=== PATIENT | male | born 1955 | race Caucasian/White ===

== ENCOUNTER 2021-06-02 08:42 | Emergency (ER) | payer MEDICARE ==
[~2021-06-02] VITALS: Ht 170.2 cm; Wt 102.3 kg
[2021-06-02] MEDS ORDERED: MECL-134 PO (08:46)
[2021-06-02] MEDS ORDERED: CHOL500043 PO (08:46)
[2021-06-02] MEDS ORDERED: LISI-892 PO (08:46)
[2021-06-02] MEDS ORDERED: OMEP20 PO (08:46)
[2021-06-02] MEDS ORDERED: METF-911 PO (08:46)
[2021-06-02] MEDS ORDERED: SEMA3TAB4 PO (08:46)
[2021-06-02] MEDS ORDERED: ATOR20TA86 PO (08:46)
[2021-06-02 10:06] VITALS: BP 122/75
== END 2021-06-02 11:46 | disposition home or self-care (01) ==
LOC: EMS 08:49
DX: S61.012A Laceration without foreign body of left thumb without damage to nail, initial encounter (principal); I10 Essential (primary) hypertension; E11.9 Type 2 diabetes mellitus without complications; Z79.84 Long term (current) use of oral hypoglycemic drugs; Z79.899 Other long term (current) drug therapy; X58.XXXA Exposure to other specified factors, initial encounter; Y93.89 Activity, other specified; Y92.89 Other specified places as the place of occurrence of the external cause; Y99.8 Other external cause status
CPT/HCPCS: 82962; 99283

== ENCOUNTER 2021-07-05 08:53 | Emergency (ER) | payer MEDICARE ==
[~2021-07-05] VITALS: Ht 172.7 cm; Wt 102.3 kg
[~2021-07-05 08:53] MED LIST: ATOR20TA86 PO; CHOL500043 PO; LISI-892 PO; MECL-134 PO; METF-911 PO; OMEP20 PO; SEMA3TAB4 PO
[2021-07-05] MEDS ORDERED: KETOROLAC TROMETHAMINE 30 MG/ML VIAL IM ONE (10:00)
[2021-07-05] MEDS ORDERED: LIDOCAINE 5% TRANSDERMAL PATCH TD ONE (10:00)
[2021-07-05] MEDS ORDERED: ACETAMINOPHEN 500 MG TABLET PO ONE (10:00)
[2021-07-05 11:07] VITALS: BP 120/72
[2021-07-05] MEDS ORDERED: IBUP-2070 PO (11:15)
[2021-07-05] MEDS ORDERED: LIDO700A15 TP (11:15)
== END 2021-07-05 11:33 | disposition home or self-care (01) ==
LOC: EMS 09:01
DX: M54.50 Low back pain, unspecified (principal); E11.9 Type 2 diabetes mellitus without complications; E78.00 Pure hypercholesterolemia, unspecified; G43.909 Migraine, unspecified, not intractable, without status migrainosus; I10 Essential (primary) hypertension; M19.90 Unspecified osteoarthritis, unspecified site
CPT/HCPCS: 96372; 99283; J1885

== ENCOUNTER 2021-07-08 10:00 | Inpatient (IN) | payer MEDICARE ==
[~2021-07-08] VITALS: Ht 172.7 cm; Wt 102.3 kg
[~2021-07-08 10:00] MED LIST changes: +IBUP-2070 PO; +LIDO700A15 TP; -SEMA3TAB4 PO
[2021-07-08] MEDS ORDERED: SEMA3TAB4 PO (10:15)
[2021-07-08] MEDS ORDERED: PROP10TA73 PO (10:15)
[2021-07-08] MEDS ORDERED: SODIUM CHLORIDE 0.9% 1,000 ML IV ONE (10:45)
[2021-07-08 11:10] LABS: BASOPHILS % (AUTO) 0.8 % (0.0-2.0); EOSINOPHILS % (AUTO) 2.8 % (1.0-6.0); HEMATOCRIT 39.1 % (41-53); HEMOGLOBIN 13.3 g/dL (13.5-17.5); LYMPHOCYTES # (AUTO) 1.6 K/uL (1.0-4.8); LYMPHOCYTES % (AUTO) 36.3 % (22.0-44.0); MEAN CORPUSCULAR HEMOGLOBIN 31.7 pg (26.0-34.0); MEAN CORPUSCULAR HGB CONC 33.9 G/dL (31.0-37.0); MEAN CORPUSCULAR VOLUME 94 fL (80-100); MONOCYTES # (AUTO) 0.4 K/uL (0.1-1.0); MONOCYTES % (AUTO) 9.4 % (2.0-9.0); NEUTROPHILS # (AUTO) 2.3 K/uL (1.8-7.7); NEUTROPHILS % (AUTO) 50.7 % (40.0-70.0); PLATELET COUNT (AUTO) 102 K/uL (150-450); RED BLOOD CELL COUNT(AUTO) 4.18 MIL/uL (4.50-5.90); RED CELL DISTRIBUTION WIDTH 13.7 % (11.5-14.5)
[2021-07-08 11:21] LABS: ANION GAP 9 mmol/L (8-16); CALCIUM, TOTAL 8.6 mg/dL (8.8-10.5); CARBON DIOXIDE 23 mmol/L (22-29); CHLORIDE 103 mmol/L (98-107); CREATININE 0.94 mg/dL (0.60-1.30); GLOMERULAR FILTR. RATE CALC > 60 mL/min (>60); GLUCOSE,RANDOM 182 mg/dL (70-110); POTASSIUM 4.2 mmol/L (3.5-5.1); SODIUM SERUM 135 mmol/L (136-145); UREA NITROGEN, BLOOD 20 mg/dL (7-18)
[2021-07-08 11:23] LABS: COVID AG,FIA SOURCE NASOPHARYNGEAL
[2021-07-08 11:27] LABS: ALANINE AMINOTRANSFERASE 65 U/L (12-78); ALBUMIN 3.1 g/dL (3.4-5.0); ALKALINE PHOSPHATASE 112 U/L (46-116); ASPARTATE AMINOTRANSFERASE 56 U/L (15-37); BILIRUBIN,TOTAL 0.8 mg/dL (0.1-1.0); CREATINE KINASE, TOTAL ONLY 51 U/L (39-308); PHOSPHORUS 4.1 mg/dL (2.5-4.9); TOTAL PROTEIN, SERUM 6.8 g/dL (6.4-8.2)
[2021-07-08 11:28] LABS: B-TYPE NATRIURETIC PEPTIDE 23 pg/mL (0-100)
[2021-07-08 11:42] LABS: INFLUENZA TYPE A NEGATIVE FOR TYPE A (NEGATIVE); INFLUENZA TYPE B NEGATIVE FOR TYPE B (NEGATIVE)
[2021-07-08] MEDS ORDERED: METF-1211 PO (11:42)
[2021-07-08] MEDS ORDERED: LACT10SO10 PO (11:42)
[2021-07-08] MEDS ORDERED: LACTULOSE 20 GM/30 ML SOLUTION UDCUP PO ONE (11:45)
[2021-07-08] MEDS ORDERED: TIZA-211 PO (12:09)
[2021-07-08] MEDS ORDERED: INSULIN LISPRO 100 UNITS/ML SQ PRN (13:15)
[2021-07-08] MEDS ORDERED: DEXTROSE 50%-WATER 25 GM/50 ML SYRINGE IVP PRN (13:15)
[2021-07-08] MEDS ORDERED: ALBUTEROL SULFATE 2.5 MG/0.5 ML NEB SOLUTION NEB PRN (13:30)
[2021-07-08] MEDS ORDERED: MECLIZINE HCL 25 MG TABLET PO PRN (13:30)
[2021-07-08] MEDS ORDERED: ONDANSETRON HCL 4 MG/2 ML VIAL IVP PRN (13:30)
[2021-07-08] MEDS ORDERED: IPRATROPIUM BROMIDE 0.5 MG/2.5 ML NEB SOLUTION NEB PRN (13:30)
[2021-07-08] MEDS ORDERED: 0.9% SODIUM CHLORIDE 10 ML SYRINGE IVP PRN (13:30)
[2021-07-08] MEDS: RIFAXIMIN 550 MG TABLET PO SCH ×2 (13:39→21:23)
[2021-07-08 13:59] LABS: APPEARANCE,URINE CLEAR (CLEAR); BILIRUBIN,URINE NEGATIVE (NEGATIVE); GLUCOSE, URINE (UA) NEGATIVE (NEGATIVE); KETONES,URINE NEGATIVE (NEGATIVE); LEUKOCYTE ESTERASE ,URINE NEGATIVE (NEGATIVE); NITRATE,URINE NEGATIVE (NEGATIVE); OCCULT BLOOD,URINE NEGATIVE (NEGATIVE); PH,URINE 5.5 (5.0-8.0); PROTEIN,URINE NEGATIVE (NEGATIVE); SPECIFIC GRAVITIY, URINE 1.018 (1.003-1.030)
[2021-07-08 14:11] LABS: HEMOGLOBIN A1C 6.1 % (3.8-5.6)
[2021-07-08 14:19] LABS: THYROID STIMULATING HORMONE 2.67 uIU/mL (0.36-3.74)
[2021-07-08] MEDS: LACTULOSE 20 GM/30 ML SOLUTION UDCUP PO SCH ×2 (15:57→20:40)
[2021-07-08] MEDS: ACETAMINOPHEN 325 MG TABLET PO PRN (16:04)
[2021-07-08] MEDS ORDERED: BACLOFEN 10 MG TABLET PO ONE (19:00)
[2021-07-09 05:25] LABS: BASOPHILS % (AUTO) 0.8 % (0.0-2.0); EOSINOPHILS % (AUTO) 2.9 % (1.0-6.0); HEMATOCRIT 40.1 % (41-53); HEMOGLOBIN 13.9 g/dL (13.5-17.5); LYMPHOCYTES # (AUTO) 2.1 K/uL (1.0-4.8); LYMPHOCYTES % (AUTO) 39.5 % (22.0-44.0); MEAN CORPUSCULAR HEMOGLOBIN 32.2 pg (26.0-34.0); MEAN CORPUSCULAR HGB CONC 34.6 G/dL (31.0-37.0); MEAN CORPUSCULAR VOLUME 93 fL (80-100); MONOCYTES # (AUTO) 0.6 K/uL (0.1-1.0); MONOCYTES % (AUTO) 10.8 % (2.0-9.0); NEUTROPHILS # (AUTO) 2.4 K/uL (1.8-7.7); PLATELET COUNT (AUTO) 103 K/uL (150-450); RED BLOOD CELL COUNT(AUTO) 4.31 MIL/uL (4.50-5.90); RED CELL DISTRIBUTION WIDTH 13.5 % (11.5-14.5)
[2021-07-09 05:47] LABS: ALANINE AMINOTRANSFERASE 67 U/L (12-78); ALBUMIN 3.1 g/dL (3.4-5.0); ALKALINE PHOSPHATASE 87 U/L (46-116); ANION GAP 5 mmol/L (8-16); ASPARTATE AMINOTRANSFERASE 59 U/L (15-37); BILIRUBIN,TOTAL 1.1 mg/dL (0.1-1.0); CALCIUM, TOTAL 8.4 mg/dL (8.8-10.5); CARBON DIOXIDE 26 mmol/L (22-29); CHLORIDE 107 mmol/L (98-107); CREATININE 0.86 mg/dL (0.60-1.30); FREE T4 (FREE THYROXINE) 1.11 ng/dL (0.76-1.46); GLOMERULAR FILTR. RATE CALC > 60 mL/min (>60); GLUCOSE,RANDOM 99 mg/dL (70-110); POTASSIUM 3.6 mmol/L (3.5-5.1); SODIUM SERUM 138 mmol/L (136-145); TOTAL PROTEIN, SERUM 6.8 g/dL (6.4-8.2); UREA NITROGEN, BLOOD 14 mg/dL (7-18)
[2021-07-09] MEDS: PANTOPRAZOLE SODIUM 40 MG DR TABLET PO SCH (09:16)
[2021-07-09] MEDS: LACTULOSE 20 GM/30 ML SOLUTION UDCUP PO SCH ×4 (09:17→20:14)
[2021-07-09 09:46] VITALS: BP 140/79
[2021-07-09] MEDS: ACETAMINOPHEN 325 MG TABLET PO PRN (10:07)
[2021-07-09] MEDS: RIFAXIMIN 550 MG TABLET PO SCH ×2 (10:07→20:15)
[2021-07-09 12:16] LABS: GLUCOMETER DEV NAME(LOC) 5S.2B; GLUCOSE,POINT OF CARE 179 MG/DL (70-110)
[2021-07-09 15:00] VITALS: BP 120/71
[2021-07-09 20:31] VITALS: BP 111/64
[2021-07-09 20:56] LABS: AMPHET/METH SCREEN,URINE NEGATIVE (NEGATIVE); BARBITURATE SCREEN, URINE NEGATIVE (NEGATIVE); BENZODIAZEPINES SCREEN,URINE NEGATIVE (NEGATIVE); CANNABINOID SCREEN,URINE NEGATIVE (NEGATIVE); COCAINE SCREEN,URINE NEGATIVE (NEGATIVE); METHADONE SCREEN, URINE NEGATIVE (NEGATIVE); OPIATE SCREEN,URINE NEGATIVE (NEGATIVE)
[2021-07-09 20:57] LABS: PHENCYCLIDINE SCREEN,URINE NEGATIVE (NEGATIVE)
[2021-07-10] VITALS: BP 100/63
[2021-07-10 04:00] VITALS: BP 113/62
[2021-07-10 04:02] LABS: GLUCOMETER DEV NAME(LOC) 5S.1B; GLUCOSE,POINT OF CARE 139 MG/DL (70-110)
[2021-07-10 04:06] LABS: GLUCOMETER DEV NAME(LOC) 5N.1C; GLUCOSE,POINT OF CARE 144 MG/DL (70-110)
[2021-07-10 06:20] LABS: BASOPHILS % (AUTO) 0.5 % (0.0-2.0); EOSINOPHILS % (AUTO) 3.4 % (1.0-6.0); HEMATOCRIT 39.1 % (41-53); HEMOGLOBIN 13.2 g/dL (13.5-17.5); LYMPHOCYTES # (AUTO) 2.4 K/uL (1.0-4.8); LYMPHOCYTES % (AUTO) 38.2 % (22.0-44.0); MEAN CORPUSCULAR HEMOGLOBIN 31.5 pg (26.0-34.0); MEAN CORPUSCULAR HGB CONC 33.8 G/dL (31.0-37.0); MEAN CORPUSCULAR VOLUME 93 fL (80-100); MONOCYTES # (AUTO) 0.9 K/uL (0.1-1.0); MONOCYTES % (AUTO) 14.5 % (2.0-9.0); NEUTROPHILS # (AUTO) 2.8 K/uL (1.8-7.7); NEUTROPHILS % (AUTO) 43.4 % (40.0-70.0); PLATELET COUNT (AUTO) 112 K/uL (150-450); RED BLOOD CELL COUNT(AUTO) 4.19 MIL/uL (4.50-5.90); RED CELL DISTRIBUTION WIDTH 13.6 % (11.5-14.5)
[2021-07-10 06:36] LABS: ALANINE AMINOTRANSFERASE 73 U/L (12-78); ALBUMIN 3.1 g/dL (3.4-5.0); ALKALINE PHOSPHATASE 77 U/L (46-116); ANION GAP 7 mmol/L (8-16); ASPARTATE AMINOTRANSFERASE 65 U/L (15-37); BILIRUBIN,TOTAL 1.5 mg/dL (0.1-1.0); CALCIUM, TOTAL 8.3 mg/dL (8.8-10.5); CARBON DIOXIDE 26 mmol/L (22-29); CHLORIDE 104 mmol/L (98-107); CREATININE 0.89 mg/dL (0.60-1.30); GLOMERULAR FILTR. RATE CALC > 60 mL/min (>60); GLUCOSE,RANDOM 102 mg/dL (70-110); POTASSIUM 3.5 mmol/L (3.5-5.1); SODIUM SERUM 137 mmol/L (136-145); TOTAL PROTEIN, SERUM 6.7 g/dL (6.4-8.2); UREA NITROGEN, BLOOD 13 mg/dL (7-18)
[2021-07-10 06:54] VITALS: BP 104/59
[2021-07-10 07:31] LABS: GLUCOMETER DEV NAME(LOC) 5N.1C; GLUCOSE,POINT OF CARE 109 MG/DL (70-110)
[2021-07-10] MEDS: RIFAXIMIN 550 MG TABLET PO SCH (09:07)
[2021-07-10] MEDS: PANTOPRAZOLE SODIUM 40 MG DR TABLET PO SCH (09:07)
[2021-07-10] MEDS: LACTULOSE 20 GM/30 ML SOLUTION UDCUP PO SCH (09:09)
[2021-07-10 10:43] VITALS: BP 123/76
[2021-07-10] MEDS ORDERED: RIFAX550 PO (11:06)
[2021-07-10] MEDS ORDERED: LACT10SO10 PO (11:06)
[2021-07-15] MEDS ORDERED: CHOLECALCIFEROL (VIT D3) 50,000 UNITS [1,250 MCG] CAPSULE PO SCH (09:00)
== END 2021-07-10 13:03 | disposition home or self-care (01) | DRG 312 ==
LOC: EMS 10:01 → 5S 07-09 08:33
PROVIDERS: ADMIT Internal Medicine; ATTEND Internal Medicine
DX: I95.2 Hypotension due to drugs (principal); K72.00 Acute and subacute hepatic failure without coma; K74.60 Unspecified cirrhosis of liver; E11.9 Type 2 diabetes mellitus without complications; I11.9 Hypertensive heart disease without heart failure; E78.5 Hyperlipidemia, unspecified; K21.9 Gastro-esophageal reflux disease without esophagitis; K76.0 Fatty (change of) liver, not elsewhere classified; T44.7X5A Adverse effect of beta-adrenoreceptor antagonists, initial encounter; E78.00 Pure hypercholesterolemia, unspecified; Z20.822 Contact with and (suspected) exposure to COVID-19; G43.909 Migraine, unspecified, not intractable, without status migrainosus; Z79.899 Other long term (current) drug therapy; Y92.89 Other specified places as the place of occurrence of the external cause
CPT/HCPCS: 70450; 71045; 80053; 81003; 82140; 82550; 82962; 83036; 83735; 83880; 84100; 84145; 84439; 84443; 84484; 85025; 87804; 93005; 93306; 99291; G0480; J7030; 36415-L1; 36415-TC